=== PATIENT | female | born 1960 | race Caucasian/White ===

== ENCOUNTER 2023-05-22 15:11 | Emergency (ER) | payer OTHER, SELFPAY ==
[2023-05-22] VITALS (15 sets, daily range): BP systolic 134–159; BP diastolic 61–78; PULSE 64–83; RESP 7–30; TEMP 36.4; O2SAT 91–100; BMI 33.5
--- NOTE | 2023-05-22 15:35 | XR_ITS ---
The [address] [address] Patient Name: JULIAN DOS SANTOS MRN: [id number] date: 1960 Sex: F Assigned Patient Location: ER Current Patient Location: ED.MAIN Accession/Order Number: [id number] Exam Date: 05/22/2023 16:19 Report Date: 05/22/2023 16:43 At the request of: ANNA JORDAN Procedure: XR chest 2V EXAM: CHEST 2 VIEWS HISTORY: cp TECHNIQUE: PA and lateral views chest. COMPARISON: None. FINDINGS: There is mild elevation of the right hemidiaphragm. The lungs are clear. There is no focal lung consolidation, pleural effusion or pneumothorax. Pulmonary vasculature is within normal limits. The cardiomediastinal silhouette is upper limits of normal to borderline enlarged. XR/XR chest 2V IMPRESSION: 1. No acute cardiopulmonary disease. 2. Heart size upper limits of normal to borderline enlarged. Electronically authenticated by: KENY WRAY Date: 05/22/2023 16:43
--- NOTE | 2023-05-22 15:35 | ECG_ITS ---
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
--- NOTE | 2023-05-22 15:40 | ED_ITS ---
HPI - General Adult General Chief complaint: Chest Pain Stated complaint: chest pain Time Seen by Provider: 05/22/23 15:34 Source: patient Mode of arrival: walk-in History of Present Illness HPI narrative: Patient is a 63-year-old female who is presenting to the Emergency Room with chief complaint of anterior chest wall pain, thoracic back pain, difficulty with deep breath and splinting therefore causing increased respiratory rate. Patient leaves that she has diffuse muscle related pain possibly secondary to physical therapy that she had yesterday. Patient was seen in occupational health clinic today, patient was then brought down to the Emergency Room secondary chest tightness, difficulty breathing, pain to her chest, back, and for further testing and evaluation. Patient had a left shoulder replacement and a revision in her left shoulder. This surgery was done by Dr. Gallardo of orthopedic surgery from [facility]. Patient has no recent falls, no recent traumas. Patient did have a deep tissue massage to the mid/lower thoracic area yesterday by physical therapy. Patient is concerned this may have triggered some of her pain. Patient's having pain last night and this evening it got worse. Patient is taking her [employer] at home that she has left over from her surgery that was prescribed by Dr. Gallardo. Patient has no abdominal pain, nausea or vomiting. No other acute complaints. . All systems are negative except as noted/marked. All systems reviewed and otherwise negative. . Nurses note and vital signs reviewed and patient is not hypoxic. General: The patient appears well and in no apparent distress. Patient is res ting comfortably on cart. Patient is not toxic, lethargic, or listless. Patient is tearful, appears to be slightly anxious, has increased respiratory rate secondary to splinting. Skin: Warm, dry, no pallor noted. There is no rash noted. No petechiae, purpura. Head: Normocephalic, atraumatic Eye: Normal conjunctiva, no drainage, EOMI. PERRL Ears, Nose, Mouth, and Throat: oral mucosa is moist. Nares patent. Mouth without vesicles. Cardiovascular: Regular Rate and Rhythm, no murmur, gallop, rub. Patient has moderate tenderness to palpation that is reproducible to the anterior Upper and mid bilateral anterior chest wall, more focused to the parasternal area. Patient also has reproducible moderate tenderness to palpation to the mid and lower parathoracic areas Respiratory: Patient is in no distress, no accessory muscle use, lungs are clear to auscultation, no wheezing, rales or rhonchi Back: non-tender, no CVA tenderness bilaterally to percussion. No CT LS midline pain GI: soft, no tenderness to palpation, no masses appreciated. No rebound, guarding, or rigidity noted. No flank pain bilateral, No distention Musculoskeletal: Patient has full range of motion of all of the extremities, no motor, sensory, or focal neurological deficits Neurological: A&O x3, normal speech Psychiatric: Cooperative Related Data Home Medications Medication Instructions Recorded Confirmed atorvastatin 20 mg tablet 20 mg PO QDAY 05/22/23 05/22/23 hydrocodone 5 mg-acetaminophen 325 1 tab PO Q6H PRN pain 05/22/23 05/22/23 mg tablet tirzepatide 10 mg/0.5 mL 10 mg subcut QWEEK 05/22/23 05/22/23 subcutaneous pen injector (Marty) Previous Rx's Medication Instructions Recorded methocarbamol 500 mg tablet 500 mg PO TID PRN muscle pain #10 05/22/23 tabs Allergies Allergy/AdvReac Type Severity Reaction Status Date / Time prednisone AdvReac Intermediate Verified 05/22/23 15:19 Sulfa (Sulfonamide AdvReac Intermediate Verified 05/22/23 15:16 Antibiotics) [facility] Surgical History Social History Smoking status: Current some day smoker Exam Constitutional Vital Signs, click to edit/add: Last Vital Signs Temp 97.6 F 05/22/23 15:16 Pulse 78 05/22/23 17:00 Resp 17 05/22/23 17:00 BP 159/78 H 05/22/23 15:21 Pulse Ox 91 L 05/22/23 17:00 Course Vital Signs Vital signs: Vital Signs Temperature 97.6 F 05/22/23 15:16 Pulse Rate 67 05/22/23 15:16 Respiratory Rate 18 05/22/23 15:16 Blood Pressure 159/78 H 05/22/23 15:16 Pulse Oximetry 100 05/22/23 15:16 Temperature 97.6 F 05/22/23 15:16 Pulse Rate 78 05/22/23 17:00 Respiratory Rate 17 05/22/23 17:00 Blood Pressure 159/78 H 05/22/23 15:21 Pulse Oximetry 91 L 05/22/23 17:00 Medical Decision Making MDM Narrative Medical decision making narrative: Patient's EKG, chest x-ray, and lab work showed no acute findings. Patient will be sent home with Mirna, she has pain medication use at home if needed. Patient will use anti-inflammatories as well. Patient was given aspirin and term inal prophylactically. Patient will follow-up with occupational clinic as needed. No questions at discharge. Patient's EKG, x-ray, lab work showed no acute findings. Patient feels better at discharge. Patient is no longer hyperventilating and taking short shallow breaths. Education on ice, using anti-inflammatories. Patient will follow-up with PCP, and continue her rehab and therapy for her left shoulder. No questions at discharge. Patient's potassium levels were normal. Lab Data Lab results reviewed: Yes I reviewed the patient's lab results Labs: Lab Results 05/22/23 Range/Units 15:50 WBC 8.7 (4.0-11.0) 10^3/uL RBC 4.71 (4.20-5.40) 10^6/uL Hgb 13.8 (12.0-16.0) g/dL Hct 42.6 (36.0-48.0) % MCV 90.4 (81.0-99.0) fL MCH 29.3 (26.7-34.0) pg MCHC 32.4 (29.9-35.2) g/dL RDW 13.5 (11.0-15.0) % Plt Count 230 (150-450) 10^3/uL MPV 10.9 (9.5-13.5) fL Neut % (Auto) 53.7 (43.0-75.0) % Lymph % (Auto) 37.0 (20.5-60.0) % [place] % (Auto) 7.1 (1.7-12.0) % Eos % (Auto) 1.2 (0.9-7.0) % Baso % (Auto) 0.7 (0.2-2.0) % Neut # (Auto) 4.7 (1.4-6.5) 10^3/uL Lymph # (Auto) 3.2 (1.2-3.8) 10^3/uL [place] # (Auto) 0.6 (0.3-0.8) 10^3/uL Eos # (Auto) 0.1 (0.0-0.7) 10^3/uL Baso # (Auto) 0.1 (0.0-0.1) 10^3/uL Abs Immat Gran (auto) 0.03 (0.00-0.03) 10^3/uL Imm/Tot Granulo (auto) 0.3 (0.0-0.5) % Sodium 139 (136-145) mmol/L Potassium 3.8 (3.5-5.1) mmol/L Chloride 104 (98-107) mmol/L Carbon Dioxide 29.8 (21.0-32.0) mmol/L Anion Gap 9.0 BUN 12.0 (7.0-18.0) mg/dL Creatinine 1.04 H (0.55-1.02) mg/dL Est GFR ( Amer) >60 (>=60) Est GFR (Non-Af Amer) 54 L (>=60) BUN/Creatinine Ratio 11.5 Glucose 82 (74-106) mg/dL Calcium 9.5 (8.5-10.1) mg/dL Total Bilirubin 1.3 H (0.2-1.0) mg/dL AST 10 L (15-37) U/L ALT 10 L (14-59) U/L Alkaline Phosphatase 80 (46-116) U/L Troponin I High Sens <4.0 L (4.0-51.3) pg/mL Total Protein 6.9 (6.4-8.2) g/dL Albumin 3.4 (3.4-5.0) g/dL Globulin 3.5 g/dL Albumin/Globulin Ratio 1.0 Lipase 56.0 L (73.0-393.0) U/L ECG Data Attestation: I personally reviewed and interpreted this ECG as follows: (EKG interpretation. Normal sinus rhythm at 65 beats a minute. Normal axis deviation. No acute ST elevation, no acute ectopy. QTC of 402.) Discharge Plan Discharge Chief Complaint: Chest Pain Clinical Impression: Bilateral thoracic back pain, Atypical chest pain, Costochondral chest pain Patient Disposition: Home, Self-Care Condition: Fair Prescriptions / Home Meds: New methocarbamol 500 mg tablet 500 mg PO TID PRN (Reason: muscle pain) Qty: 10 0RF No Action atorvastatin 20 mg tablet 20 mg PO QDAY hydrocodone-acetaminophen 5-325 mg tablet 1 tab PO Q6H PRN (Reason: pain) Mounjaro 10 mg/0.5 mL pen injector 10 mg SUBCUT QWEEK Instructions: Costochondritis (ED), Thoracic Pain (ED), Chest Wall Pain (ED) Stand Alone Forms: Portal Instructions Referrals: Physician,Non-Staff, MD [Primary Care Provider] - 1 week
[2023-05-22] MEDS: LORAZEPAM 2 MG/ML 1 ML VIAL 1 MG IV (16:01)
[2023-05-22] MEDS: ASPIRIN 81 MG TAB.CHEW PO (16:01)
[2023-05-22 16:02] LABS: Basophils Absolute Auto 0.1 10^3/uL (0.0-0.1); Basophils Percent Auto 0.7 % (0.2-2.0); Eosinophils Absolute Auto 0.1 10^3/uL (0.0-0.7); Eosinophils Percent Auto 1.2 % (0.9-7.0); Hematocrit 42.6 % (36.0-48.0); Hemoglobin 13.8 g/dL (12.0-16.0); Immature Granulocytes Abs Auto 0.03 10^3/uL (0.00-0.03); Immature Granulocytes Pct Auto 0.3 % (0.0-0.5); Lymphocytes Absolute Auto 3.2 10^3/uL (1.2-3.8); Mean Corpuscular HGB Conc 32.4 g/dL (29.9-35.2); Mean Corpuscular Hemoglobin 29.3 pg (26.7-34.0); Mean Corpuscular Volume 90.4 fL (81.0-99.0); Mean Platelet Volume 10.9 fL (9.5-13.5); Monocytes Absolute Auto 0.6 10^3/uL (0.3-0.8); Monocytes Percent Auto 7.1 % (1.7-12.0); Neutrophils Absolute Auto 4.7 10^3/uL (1.4-6.5); Neutrophils Percent Auto 53.7 % (43.0-75.0); Platelet Count 230 10^3/uL (150-450); Red Blood Count 4.71 10^6/uL (4.20-5.40); Red Cell Distribution Width 13.5 % (11.0-15.0); White Blood Count 8.7 10^3/uL (4.0-11.0)
[2023-05-22 16:21] LABS: Alanine Aminotransferase 10 U/L (14-59); Albumin Level 3.4 g/dL (3.4-5.0); Alkaline Phosphatase 80 U/L (46-116); Aspartate Amino Transferase 10 U/L (15-37); BUN Creatinine Ratio 11.5; Bilirubin Total 1.3 mg/dL (0.2-1.0); Calcium 9.5 mg/dL (8.5-10.1); Carbon Dioxide 29.8 mmol/L (21.0-32.0); Chloride 104 mmol/L (98-107); Estimated GFR (African America >60 (>=60); Estimated GFR (Non-African Ame 54 (>=60); Globulin 3.5 g/dL; Glucose 82 mg/dL (74-106); Potassium 3.8 mmol/L (3.5-5.1); Sodium 139 mmol/L (136-145); Total Protein 6.9 g/dL (6.4-8.2); Troponin I High Sensitivity <4.0 pg/mL (4.0-51.3)
== END 2023-05-22 17:38 | disposition home or self-care (01) ==
PROVIDERS: Emergency Provider Emergency Medicine
DX: R07.89 Other chest pain (principal); M54.6 Pain in thoracic spine; Z96.612 Presence of left artificial shoulder joint; Z79.899 Other long term (current) drug therapy; F17.210 Nicotine dependence, cigarettes, uncomplicated
CPT/HCPCS: 36415; 71046; 80053; 83690; 84484; 85025; 93005; 96374; 99285

== ENCOUNTER 2024-06-21 08:10 | Outpatient (OUT) | payer OTHER, SELFPAY ==
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
== END 2024-06-21 08:11 | disposition home or self-care (01) ==
LOC: PM 08:12
PROVIDERS: PCP Student in an Organized Health Care Education/Training Program; Visit Provider Nurse Practitioner
DX: M75.42 Impingement syndrome of left shoulder (principal); M25.512 Pain in left shoulder; M75.22 Bicipital tendinitis, left shoulder
CPT/HCPCS: G0463

== ENCOUNTER 2024-07-04 08:09 | Day surgery (SDC) | payer OTHER, SELFPAY ==
[2024-07-04 08:39] LABS: Glucometer 73 mg/dL (74-106)
[2024-07-04 08:40] VITALS: BP 140/82; PULSE 56; TEMP 36.3; O2SAT 99
[2024-07-04 09:12] VITALS: BP 149/80; PULSE 53; O2SAT 94
[2024-07-04 09:14] VITALS: BP 141/71; PULSE 54; O2SAT 95
[2024-07-04] MEDS: LIDOCAINE HCL 2% 400 MG/20 ML MDV INJ (09:15)
[2024-07-04] MEDS: IOHEXOL 240 MG/ML - 10 ML VIAL 24 MG INJ (09:15)
[2024-07-04] MEDS: BUPIVACAINE HCL 0.25% PF 25 MG/10 ML VIAL INJ (09:15)
[2024-07-04] MEDS: TRIAMCINOLONE ACETONIDE 40 MG/ML VIAL INJ (09:16)
--- NOTE | 2024-07-04 09:16 | W.PM.PROCNOT ---
Date of procedure: 07/04/24 Pre-op diagnosis: Pain due to left shoulder osteoarthritis, shoulder impingement syndrome Post-op diagnosis: same as pre-op Procedure: Procedure: Left suprascapular and axillary nerve block Medications: Bupivacaine 0.25% 3cc, kenalog 40mg The patient was seen and examined in the preoperative holding area. Informed consent was obtained and placed on the chart.? The patient was brought to the medical procedure unit and placed in the prone position. A timeout was completed verifying correct patient, procedure site, positioning, plan, and special equipment.? Using aseptic technique, under direct fluoroscopic visualization, a 25-gauge 3-1/2 inch spinal needle was advanced to the superior portion of the left posterior osseous rim of the glenoid fossa, lateral and superior to the spinal glenoid notch.? 0.5 cc of the above solution was injected.? The needle was then redirected 3 mm inferiorly and another 0.5 cc of the above medication was injected.? This needle was then removed.? Using aseptic technique, under direct fluoroscopic visualization, another 25-gauge 3-1/2 inch spinal needle was advanced toward the most inferior and lateral border of the greater tubercle.? 0.5 cc of the above medication was administered.? The needle was then redirected 3 mm inferiorly.? 0.5 cc was administered in this region.? This needle was removed. ? The patient was taken to the postprocedural recovery area and monitored for an appropriate length of time before being found suitable for discharge in the accompaniment of a responsible adult. Anesthesia: Local Surgeon: Dixie Cifuentes Pathology: none sent Condition: stable Disposition: no change
== END 2024-07-04 09:22 | disposition home or self-care (01) ==
PROVIDERS: PCP Student in an Organized Health Care Education/Training Program; Visit Provider Anesthesiology
DX: M25.512 Pain in left shoulder (principal); M75.42 Impingement syndrome of left shoulder; E11.9 Type 2 diabetes mellitus without complications
CPT/HCPCS: 36415; 64417; 64418; 82948; J0665; J3301; Q9966

== ENCOUNTER 2024-07-13 11:13 | Outpatient (OUT) | payer OTHER, SELFPAY ==
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
== END 2024-07-13 11:14 | disposition home or self-care (01) ==
LOC: PM 11:14
PROVIDERS: PCP Student in an Organized Health Care Education/Training Program; Visit Provider Nurse Practitioner
DX: M75.22 Bicipital tendinitis, left shoulder (principal); M25.512 Pain in left shoulder; Z98.890 Other specified postprocedural states; G89.29 Other chronic pain; M75.42 Impingement syndrome of left shoulder
CPT/HCPCS: G0463

== ENCOUNTER 2024-09-16 13:08 | Outpatient (OUT) | payer OTHER, SELFPAY ==
--- NOTE | 2024-09-16 13:11 | MR_ITS ---
The [address] [address] Patient Name: JULIAN DOS SANTOS MRN: [id number] date: 1960 Sex: F Assigned Patient Location: MRI Current Patient Location: MRI Accession/Order Number: [id number] Exam Date: 09/16/2024 13:35 Report Date: 09/17/2024 12:08 At the request of: DOMINIK MARTINEZ Procedure: MR shoulder LT wo con EXAM: MR shoulder LT wo con HISTORY: Acute Left Shoulder Pain. Symptoms for one year. Prior shoulder surgery. COMPARISON: None. TECHNIQUE: Multiplanar multisequence MRI of the left shoulder was performed without contrast. This included axial PD fat-sat, sagittal STIR, sagittal PD, sagittal T2, coronal T2 fat sat, coronal PD fat-sat, coronal T1 imaging. FINDINGS: ACROMIOCLAVICULAR JOINT: No os acromiale is seen. Mild marginal spur and capsular thickening at the acromioclavicular joint. Prior acromioplasty. Minor increased fluid is noted in the subacromial/subdeltoid bursa. ROTATOR CUFF TENDONS: Multiple suture anchors in the greater tuberosity related to prior rotator cuff repair. There is slight attenuation of the distal supraspinatus tendon fibers with postsurgical granulation tissue. The supraspinatus and infraspinatus tendons appear intact. Subscapularis tendon appears unremarkable. No rotator cuff muscle edema or atrophy is seen. BICEPS TENDON: Prior biceps tenodesis. LABRUM: There is irregularity of the superior labral remnant. Labral tissue appears otherwise unremarkable. No paralabral cyst identified. GLENOHUMERAL JOINT: Mild marginal spur at the inferior glenohumeral joint. Minor chondral loss along the inferior glenoid with subchondral cystic change. Low to intermediate grade chondral loss along the superomedial humeral head. There is no sizable glenohumeral joint effusion. No appreciable thickening of the inferior glenohumeral ligament. BONES: The bone marrow signal intensity is age appropriate. No fracture is identified. OUTLET SPACES: No mass in the quadrilateral space or spinoglenoid notch. MR/MR shoulder LT wo con IMPRESSION: 1. Prior rotator cuff repair. Slight attenuation of the supraspinatus tendon with postsurgical granulation tissue. No well-defined rotator cuff tear is identified. No rotator cuff muscle atrophy. 2. Prior biceps tenodesis. Irregularity of the superior labral remnant. 3. Prior acromioplasty. 4. No fracture is seen. 5. Minimal fluid in the subacromial bursa could be related to bursitis or nonwatertight seal. Electronically authenticated by: MYNOR VICKERS Date: 09/17/2024 12:08
== END 2024-09-16 13:09 | disposition home or self-care (01) ==
LOC: MRI 13:08
PROVIDERS: PCP Student in an Organized Health Care Education/Training Program; Visit Provider Orthopaedic Surgery
DX: M25.512 Pain in left shoulder (principal); Z87.828 Personal history of other (healed) physical injury and trauma
CPT/HCPCS: 73221